=== PATIENT | female | born 2000 | race Caucasian/White ===

== ENCOUNTER 2023-04-17 07:02 | Emergency (ER) | payer BC, SELFPAY ==
[2023-04-17 07:04] VITALS: BP 126/79; PULSE 82; RESP 16; TEMP 36.3; O2SAT 99; BMI 31.9
[2023-04-17 07:30] LABS: Mucous, Urine 0 SEEN /hpf (<or=2+); Squamous Epithelial Cells - UA 0 SEEN /hpf (5-10)
[2023-04-17 07:48] LABS: Anion Gap 4 (5-15); BUN 13 mg/dL (7-18); BUN/Creat Ratio 17.8 RATIO (10-20); Calcium,Total 9.8 mg/dL (8.5-10.1); Chloride 107 mmol/L (98-107); Creatinine, Serum 0.73 mg/dL (0.55-1.02); EST Glomerular Filtration Rate 108 mL/min (>60); Est Glom Filt Rate - Afr Amer 131 mL/min (>60); Estimated Creatinine Clearance 124.01 ml/min; Glucose 103 mg/dL (74-106); Internal QC Validated? YES +Cl - CLEAR BKGD; Potassium 3.7 mmol/L (3.5-5.1); Pregnancy, Serum, hCG Quali. NEGATIVE Negative; Sodium Level 138 mmol/L (136-145)
--- NOTE | 2023-04-17 07:59 | CT_ITS ---
STUDY: CT ABDOMEN AND PELVIS WITH CONTRAST REASON FOR EXAM: Female, 22 years old. RLQ pain -- IV PO Contrast RADIATION DOSAGE (If Supplied By Facility): CTDIvol = ( 14.44 ) mGy, DLP = ( 1200.73 ) mGycm TECHNIQUE: Transaxial images were obtained from the dome of the diaphragm to the symphysis pubis with oral contrast. Oral and IV Gastrografin and 100mL Isovue-300 was administered. Sagittal and coronal images were reconstructed. Individualized dose optimization techniques were used for this CT. COMPARISON: None. FINDINGS: The visualized lung bases are unremarkable. The visualized portions of the heart are within normal limits. Normal liver. Normal gallbladder and extrahepatic biliary system. Normal spleen. Normal pancreas. Normal bilateral adrenal glands. Normal right kidney. Normal left kidney. Normal visualized stomach. Normal small intestine. Normal colon. The appendix is visualized and appears normal. Normal abdominal aorta. Normal inferior vena cava. Normal retroperitoneum. Normal urinary bladder. There is a 2.8 cm x 2.7 cm cyst in the right ovary. IUD is seen within the endometrium. Normal abdominal wall. Normal osseous structures. CT/Abdomen/Pelvis WITH Contrast IMPRESSION: 2.8 cm x 2.7 cm cyst in the right ovary. IUD is seen within the endometrium. Electronically Signed: Olman Harding MD at 10:01 [facility] ,
--- NOTE | 2023-04-17 07:59 | EDS_ITS ---
HPI HPI - GI History of Present Illness Chief Complaint: Abd Pain Informant: patient Narrative Narrative: Presents to ED with concerns of appendicitis. Patient states pain periumbilical woke her up at 5:30 AM states shortly after pain went to her right lower quadrant. No history of similar however she was looking things up and noted possible appendicitis. She has abnormal menstrual period with an IUD. She has some bleeding over the weekend currently some breakthrough bleeding. States her normal menstrual pain is lower pelvic with vomiting for which she did not have. She took ibuprofen. She states initial arrival pain was a 10 however during my evaluation it subsequently subsided. No history of similar no abdominal surgeries in the past. Denies any allergies. Prior similar symptoms: No PFSH PFSH Medical History Asthma Allergy/AdvReac Type Severity Reaction Status Date / Time No Known Allergies Allergy Verified 04/17/23 07:06 Social History Smoking Status: Never smoker ROS ROS ED Constitutional Constitutional ED: Denies chills, fever(s) or sweats Eyes Eyes: Denies change in vision ENT ENT ED: Denies dysphagia or sore throat Cardiovascular Cardiovascular: Denies chest pain, leg edema, palpitations or racing heartbeat Respiratory/Chest Respiratory/Chest: Denies cough, dyspnea or dyspnea on exertion Gastrointestinal Gastrointestinal: Reports abdominal pain; Denies diarrhea, nausea or vomiting Genitourinary Genitourinary ED: Denies dysuria, hematuria or urinary frequency Musculoskeletal Musculoskeletal: Denies back pain, extremity pain or neck pain Integumentary Denies rash or wounds Neurologic Neurologic: Denies headache(s), paresthesias or weakness EXAM Physical Exam Const Vital Signs: 04/17/23 07:04 04/17/23 09:03 04/17/23 11:03 Temperature 97.3 F L Temperature Source Temporal Pulse Rate 82 Respiratory Rate 16 16 16 Blood Pressure 126/79 H Blood Pressure Mean 94 Pulse Ox 99 Oxygen Delivery Method Room Air Positive well nourished and well developed General Appearance ED: well developed and NAD HEENT Reports moist mucous membranes normocephalic and atraumatic Eyes PERRL, EOMs intact bilaterally and conjunctivae normal General Eye ED: Yes normal appearance of both eyes Neck no lymphadenopathy and supple General: Negative for tenderness Chest Wall Chest: Negative for tenderness Resp normal respiratory effort and normal air movement Effort and Inspection: symmetric chest movement; Negative for respiratory distress Cardio regular rate, regular rhythm and no murmurs Peripheral Pulses: pulses 2+ throughout GI normal to inspection, nondistended, normoactive bowel sounds GI Narrative: Very mild tenderness to palpation right lower quadrant. Negative Armstrong's. No guarding or rebound. Negative Rovsing's. Palpation: Negative for guarding or rebound tenderness present Back/Spine no CVA tenderness and no thoracic nor lumbar tenderness Extremity normal to inspection General Extremety ED: Negative for edema or tenderness General Extremity: Negative for edema Neuro oriented x3 and no sensory deficits noted Sensorium / Orientation: awake and alert Skin no rashes or lesions noted and no wounds MDM MDM MDM Narrative Medical decision making narrative: Interventions / MDM: Differential diagnosis: Chest x-ray abdominal pathology, pelvic pathology, ovarian cyst Diagnosis considered but do not suspect: Appendicitis however CT negative. My EKG interpretation: N/A Imaging independently reviewed and interpreted by myself: CT abdomen pelvis p.o. and IV contrast: Normal appendix, right ovarian cyst 2.8 cm I told her. External documents reviewed: N/A Test considered but not ordered:N/A ED course: Patient symptoms abdominal pain progressing right lower quadrant since 5:30 AM this morning. Feels different than her menstrual period cramps. IV established labs obtained from triage and nursing protocol. Fluids started she declines pain medication at this time. Will order CT scan abdomen pelvis with IV and oral contrast for further evaluation. 0915: hCG negative. White count 17.4. Your note leukocytes and mild WBCs per denies urinary symptoms. Urine culture sent at this time. Patient denies any urinary symptoms. Awaiting CT scan. CT scan normal appendix over nose right ovarian cyst symptoms remain controlled. Discussed ovarian cyst with the patient should continue NSAIDs. She was given follow-up with gynecology as she goes to school here. Return precautions discussed. All questions were answered. Re-evaluation: stable Disposition discussed with patient/family/significant other: Patient Case discussed with consulting clinician: N/A This note was generated with [employer] dictation software. It may contain incorrect words, spelling, and punctuation that were not noted in checking the note before signing. Lab Data Attestation: I reviewed the patient's lab results. Labs: Laboratory Results - last 24 hr 04/17/23 04/17/23 07:15 07:20 WBC 17.4 H RBC 4.87 Hgb 14.4 Hct 43.8 MCV 89.9 MCH 29.6 MCHC 32.9 RDW Std Deviation 41.4 RDW Coeff of Jolie 12.8 Plt Count 333 MPV 11.8 Immature Gran % (Auto) 0.500 Neut % (Auto) 80.1 H Lymph % (Auto) 12.3 L [place] % (Auto) 5.5 Eos % (Auto) 1.2 Baso % (Auto) 0.4 Absolute Neuts (auto) 13.9 H Absolute Lymphs (auto) 2.14 Nucleated RBC % 0 Sodium 138 Potassium 3.7 Chloride 107 Carbon Dioxide 27.0 Anion Gap 4 L BUN 13 Creatinine 0.73 Estim Creat Clear Calc 124.01 Est GFR (MDRD) Af Amer 131 Est GFR (MDRD) Non-Af 108 BUN/Creatinine Ratio 17.8 Glucose 103 Calcium 9.8 Serum , Qual NEGATIVE Urine Color Yellow Urine Clarity Sl. Cloudy Urine pH 7.0 Ur Specific [place] 1.015 Urine Protein 15 H Urine Glucose (UA) Normal Urine Ketones Negative Urine Occult Blood 25 H Urine Nitrite Negative Urine Bilirubin Negative Urine Urobilinogen Normal Ur Leukocyte Esterase 100 H Urine RBC 0-5 SEEN Urine WBC 10-25 SEEN Ur Squamous Epith Cells 0 SEEN Amorphous Sediment 1+ Urine Bacteria 1+ Coarse Granular Casts 0-5 SEEN Urine Mucus 0 SEEN Radiography Diagnostic Testing: Clinical Impression(s) from Imaging Studies Abdomen/Pelvis CT 04/17/23 07:59 IMPRESSION: 2.8 cm x 2.7 cm cyst in the right ovary. IUD is seen within the endometrium. Electronically Signed: Olman Harding MD at 10:01 EST , Discharge Plan Triage Chief Complaint: Abd Pain ED Provider: Terell Boykin Dx/Rx/DC Orders Clinical Impression: Abdominal pain, Cyst of right ovary Instructions: Ovarian Cysts Stand Alone Forms: ED Work / School Excuse Primary Care Provider: Care Physician,No Primary Referrals: Sera Campos DO [Med Staff - Active Staff] - 1 Week Afshin Wong MD [Med Staff - Active Staff] - 1-2 Weeks Care Physician,No Primary [Primary Care Provider] - Activity Restrictions/Additional Instructions: CT scan notes a right ovarian cyst of 2.8 cm. You have a normal appendix. Continue your ibuprofen every 6 hours as needed. Follow-up with gynecology. Symptoms return and significant return to the ED for reevaluation. Disposition Disposition: Home, Self Care Discharge Date/Time: 04/17/23 11:45
[2023-04-17 08:08] LABS: Color, Urine Yellow (Yellow); Glucose, Dipstick Normal (Normal); Ketone-Dipstick Negative (Negative); Leukocyte Esterase-Dipstick 100 /ul (Negative); Nitrite-Dipstick Negative (Negative); Occult Blood-Urine 25 /ul (Negative); Protein-Dipstick 15 mg/dl (Negative); Specific Gravity, Urine 1.015 (1.002-1.030); Urine Bilirubin Dipstick Negative (Negative); Urine Clarity Sl. Cloudy (Clear); Urine Urobilinogen Normal (Normal)
[2023-04-17] MEDS: 0.9% Normal Saline (1000mL) 1,000 ML 150 ML IV (08:27)
[2023-04-17 08:34] LABS: Red Blood Cells-Urine 0-5 SEEN /hpf (0-5); White Blood Cells 10-25 SEEN /hpf (0-5)
[2023-04-17 08:35] LABS: Amorphous Sediment 1+; Bacteria 1+ /hpf (None Seen); Coarse Granular Cast 0-5 SEEN /lpf (0-5 /lpf)
[2023-04-17 08:57] LABS: Absolute Lymphocyte Count 2.14 X10^3/uL (0.83-4.51); Absolute Neutrophil Count 13.9 X10^3/uL (2.0-7.7); Basophil# 0.07 X10^3/uL; Basophil% 0.4 % (0-1); Eosinophil# 0.21 X10^3/uL; Eosinophils% 1.2 % (0-5); Hematocrit 43.8 % (37-47); Hemoglobin 14.4 g/dL (12.0-15.0); Lymphocyte # 2.14 X10^3/ul (0.83-4.51); Lymphocyte % 12.3 % (19-41); Mean Corp Hgb Conc 32.9 g/dL (32-36); Mean Corpuscular Hgb 29.6 pg (27.0-32.0); Mean Corpuscular Volume 89.9 fL (81-99); Mean Platelet Vol. 11.8 fl (6.2-12.0); Monocyte# 0.95 X10^3/uL; Monocyte% 5.5 % (0-10); NRBC Flagged by Analyzer 0 % (0-5); Neutrophil # 13.91 X10^3/uL (2.7-7.7); Neutrophil % 80.1 % (47-70); Platelet Count 333 K/mm3 (150-450); RBC Distribution Width CV 12.8 % (11.6-14.6); RBC Distribution Width SD 41.4 fl (35.1-43.9); Red Blood Count 4.87 M/mm3 (4.2-5.4); White Blood Count 17.4 K/mm3 (4.4-11.0)
[2023-04-17 09:03] VITALS: RESP 16
[2023-04-17 11:03] VITALS: RESP 16
== END 2023-04-17 11:45 | disposition home or self-care (01) ==
PROVIDERS: Emergency Provider Emergency Medicine; Visit Provider Emergency Medicine
DX: N83.201 Unspecified ovarian cyst, right side (principal); R10.9 Unspecified abdominal pain
CPT/HCPCS: 74177; 80048; 81001; 84703; 85025; 87077; 87086; 87088; 87186; 96360; 96361; 99283; J7030; Q9967; A4216

== ENCOUNTER → 2023-06-04 | Outpatient (CLI) | payer BC, SELFPAY ==
--- NOTE | 2023-06-04 16:36 | US_ITS ---
STUDY: ULTRASOUND OF THE FEMALE PELVIS - COMPLETE REASON FOR EXAM: Female, 23 years old. ovarian cyst-RT LMP: Unknown. TECHNIQUE: Transabdominal TECHNICAL QUALITY: Adequate. COMPARISON: None. FINDINGS: The uterus is anteverted and is in a midline position. The uterus measures 9.1 x 5.3 x 2.4 cm. Normal uterine cervix. The endometrium measures 7.0 mm in thickness, and is hyperechoic. There is no demonstrated endometrial mass. There is no demonstrated myometrial mass. I.U.D. - The patient does have an I.U.D. The right ovary is visualized. The right ovary measures 6.7 x 4.8 x 3.4 cm. There is a right ovarian anechoic cyst structure measuring 5.9 x 2.0 x 2.7 cm consistent with a simple cyst. There is no visualized right adnexal mass or complex lesion. There is normal arterial and normal venous vascularity. The left ovary is non-visualized. There is no fluid in the cul-de-sac. The pre void volume of the bladder was 557.3 ml. US/Pelvic (Non ) IMPRESSION: Anteverted uterus with IUD in place. Right ovarian simple cyst measuring 5.9 cm. Nonvisualized left ovary, otherwise unremarkable female pelvis ultrasound. Electronically Signed: Rae Driver MD at 18:00 EST ,
== END | disposition home or self-care (01) ==
PROVIDERS: Referring Provider Obstetrics & Gynecology; Visit Provider Obstetrics & Gynecology
DX: N83.201 Unspecified ovarian cyst, right side (principal)
CPT/HCPCS: 76856